=== PATIENT | male | born 2000 | race Caucasian/White ===

== ENCOUNTER 2024-06-11 14:42 | Emergency (ER) | payer BC ==
[~2024-06-11] VITALS: Ht 170.2 cm; Wt 54.4 kg
[2024-06-11 14:55] VITALS: BP 152/99; PULSE 80; RESP 18; TEMP 98.2; O2SAT 98
[2024-06-11] MEDS: LORazepam 0.5 MG TAB PO ONE (15:55)
--- NOTE | 2024-06-11 16:09 | NUR ---
PERFORMED 12 LEAD EKG, REPORTED TO SAMI MEEKS AND RALPH ROUSSEAU. STATED THAT EKG IS NORMAL.
--- NOTE | 2024-06-11 17:32 | NUR ---
Patient discharged with v/s stable. Written and verbal after care instructions given and explained. Patient verbalized understanding. Ambulatory with steady gait. All questions addressed prior to discharge. Advised to follow up with PMD.
== END 2024-06-11 17:32 | disposition home or self-care (01) ==
LOC: MED 14:42
DX: F41.9 Anxiety disorder, unspecified (principal)
CPT/HCPCS: 93005; 99283